=== PATIENT | female | born 1990 | race American Indian/Alaskan Native ===

== ENCOUNTER 2018-08-22 15:00 | Emergency (ER) | payer OTHER ==
--- NOTE | 2018-08-22 15:53 | Emergency Department Report ---
Blank Doc - Documentation Documentation: This is a 28-year-old female that presents with right shoulder pain. [place] a p opping sensation. Also c/o of foot fungal infection for 2 months. This initial assessment/diagnostic orders/clinical plan/treatment(s) is/are subject to change based on patient's health status, clinical progression and re- assessment by fellow clinical providers in the ED. Further treatment and workup at subsequent clinical providers discretion. Patient/guardians urged not to elope from the ED as their condition may be serious if not clinically assessed and managed. Initial orders include: 1- Patient sent to [facility] for further evaluation and treatment 2- xray of shoulder
[2018-08-22 15:56] VITALS: BP 120/64
--- NOTE | 2018-08-22 18:02 | XRay Report ---
PROCEDURE: XR SHOULDER 2+V RT TECHNIQUE: Right shoulder 3 views HISTORY: right shoulder pain COMPARISONS: FINDINGS: No fracture or dislocation identified. AC joint is intact. Adjacent bony and soft tissue structures a re unremarkable. IMPRESSION: Negative three-view shoulder series. This document is electronically signed by Marcelino Oleary MD., August 22 2018 06:00:18 PM ET
--- NOTE | 2018-08-22 19:00 | Emergency Department Report ---
ED Upper Extremity Inj HPI - General Chief Complaint: Extremity Injury, Upper Stated Complaint: RT SHOULDER PAIN/LEFT FOOT INFECTION Time Seen by Provider: 08/22/18 15:52 Source: patient Mode of arrival: Ambulatory Limitations: No Limitations - History of Present Illness Initial Comments: This is a 28-year-old female that presents with right shoulder pain. [place] a popping sensation. Also c/o of foot fungal infection for 2 months. Complaint: Injury to:: right, shoulder Onset/Timin -: month(s) Other Extremity Injury: Shoulder: Right Other Injuries: none Handedness: right Place: home Severity scale (0 -10): 5 Improves With: rest Worsens With: movement of extremity Context: fall Associated Symptoms: denies: weakness, numbness, neck pain - Related Data Previous Rx's Medication Instructions Recorded Last Taken Type Cyclobenzaprine [Flexeril] 10 mg PO TID PRN #30 tablet 08/22/18 Unknown Rx Menthol/Camphor [[place] 1 applicatio TP QID PRN #1 tube 08/22/18 Unknown Rx Ointment] Naproxen [Naprosyn] 500 mg PO BID PRN #30 tablet 08/22/18 Unknown Rx Terbinafine [LamiSIL At 1%] 1 applicatio TP BID 14 Days #1 tube 08/22/18 Unknown Rx Allergies Allergy/AdvReac Type Severity Reaction Status Date / Time No Known Allergies Allergy Unverified 08/22/18 15:03 ED Review of Systems ROS: Stated complaint: RT SHOULDER PAIN/LEFT FOOT INFECTION Other details as noted in HPI Constitutional: denies: chills, fever Eyes: denies: eye pain, eye discharge, vision change ENT: denies: ear pain, throat pain Respiratory: denies: cough, shortness of breath, wheezing Cardiovascular: denies: chest pain, palpitations Endocrine: no symptoms reported Gastrointestinal: denies: abdominal pain, nausea, diarrhea Genitourinary: denies: urgency, dysuria, discharge Musculoskeletal: arthralgia. denies: back pain, joint swelling, myalgia Skin: denies: rash, lesions Neurological: denies: headache, weakness, paresthesias Psychiatric: denies: anxiety, depression Hematological/Lymphatic: denies: easy bleeding, easy bruising ED Past Medical Hx - Surgical History Additional Surgical History: right wrist - Social History Smoking Status: Never Smoker Substance Use Type: Alcohol - Medications Home Medications: Home Medications Medication Instructions Recorded Confirmed Last Taken Type Cyclobenzaprine [Flexeril] 10 mg PO TID PRN #30 tablet 08/22/18 Unknown Rx Menthol/Camphor [[place] [facility] 1 applicatio TP QID PRN #1 tube 08/22/18 Unknown Rx Ointment] Naproxen [Naprosyn] 500 mg PO BID PRN #30 tablet 08/22/18 Unknown Rx Terbinafine [LamiSIL At 1%] 1 applicatio TP BID 14 Days #1 tube 08/22/18 Unknown Rx ED Physical Exam - General Limitations: No Limitations General appearance: alert, in no apparent distress - Head Head exam: Present: atraumatic, normocephalic - Eye Eye exam: Present: normal appearance - ENT ENT exam: Present: mucous membranes moist - Neck Neck exam: Present: normal inspection - Respiratory Respiratory exam: Present: normal lung sounds bilaterally. Absent: respiratory distress, wheezes, stridor, chest wall tenderness - Cardiovascular Cardiovascular Exam: Present: regular rate, normal rhythm, normal heart sounds. Absent: systolic murmur, diastolic murmur, rubs, gallop - GI/Abdominal GI/Abdominal exam: Present: soft, normal bowel sounds. Absent: tenderness, bruit, hernia - Rectal Rectal exam: Present: deferred - Extremities Exam Extremities exam: Present: tenderness, normal capillary refill (right anterior lateral shoulder ). Absent: pedal edema, joint swelling - Expanded Upper Extremity Exam Right Shoulder Exam: Present: full ROM, tenderness, tenderness over AC joint. Absent: swelling, abrasion, laceration, ecchymosis, deformity, crepidus, dislocation, erythema Upper Arm exam: Present: full ROM. Absent: tenderness Elbow exam: Present: full ROM. Absent: tenderness Forearm Wrist exam: Present: full ROM. Absent: tenderness Hand Wrist exam: Present: full ROM. Absent: tenderness Neuro motor exam: Present: wrist extension intact, thumb opposition intact, thumb IP flexion intact, thumb adduction intact, fingers 2-5 abduction intact Neurosensory exam: Present: 2-point discrimination, radial nerve intact, ulnar nerve intact, median nerve intact Vascular: Present: normal capillary refill, radial pulse, brachial pulse, ulnar pulse. Absent: vascular compromise, pulse deficit radial art, pulse deficit ulnar art, pulse deficit brachial art - Back Exam Back exam: Present: normal inspection, full ROM. Absent: tenderness, CVA tenderness (R), CVA tenderness (L), muscle spasm, paraspinal tenderness, vertebral tenderness, rash noted - Neurological Exam Neurological exam: Present: alert, oriented X3, CN II-XII intact, normal gait, reflexes normal. Absent: motor sensory deficit - Psychiatric Psychiatric exam: Present: normal affect, normal mood - Skin Skin exam: Present: warm, dry, intact, normal color. Absent: rash ED Course Vital Signs 08/22/18 15:53 Temperature 97.6 F Pulse Rate 79 Respiratory 16 Rate Blood Pressure 120/64 O2 Sat by Pulse 98 Oximetry ED Medical Decision Making - Radiology Data Radiology results: report reviewed, image reviewed Ordering Physician: JOAQUIM MEJIA NP Date of Service: 08/22/18 Procedure(s): XR shoulder 2+V RT Accession Number(s): [id number] cc: JOAQUIM MEJIA NP Fluoro Time In Minutes: PROCEDURE: XR SHOULDER 2+V RT TECHNIQUE: Right shoulder 3 views HISTORY: right shoulder pain COMPARISONS: FINDINGS: No fracture or dislocation identified. AC joint is intact. Adjacent bony and soft tissue structures are unremarkable. IMPRESSION: Negative three-view shoulder series. This document is electronically signed by Marcelino Esteban MD., August 22 2018 06:00:18 PM ET Transcribed By: DORITA Dictated By: LIUDMILA ESTEBAN MD Electronically Authenticated By: LIUDMILA ESTEBAN MD Signed Date/Time: 08/22/181801 DD/ 39 TD/TT: 08/22/181739 - Medical Decision Making this is a shoulder strain plan; nsaid, muscle relaxant, analgesic balm, shoulder exercises pt will follow up with pcp in 2-3 days return to ed if symptoms worsen. Critical care attestation.: If time is entered above; I have spent that time in minutes in the direct care of this critically ill patient, excluding procedure time. ED Disposition Clinical Impression: Athlete's foot on left Right shoulder strain Qualifiers: Encounter type: initial encounter Qualified Code(s): S46.911A - Strain of unspecified muscle, fascia and tendon at shoulder and upper arm level, right arm, initial encounter Disposition: TO HOME OR SELFCARE Is pt being admited?: No Does the pt Need Aspirin: No Condition: Stable Instructions: Shoulder Sprain (ED), Tinea Pedis (ED) Prescriptions: Cyclobenzaprine [Flexeril] 10 mg PO TID PRN #30 tablet PRN Reason: Muscle Spasm Terbinafine [LamiSIL At 1%] 1 applicatio TP BID 14 Days #1 tube Naproxen [Naprosyn] 500 mg PO BID PRN #30 tablet PRN Reason: pain Menthol/Camphor [[place] Ointment] 1 applicatio TP QID PRN #1 tube PRN Reason: pain Referrals: [facility] [Outside] - 3-5 Days Forms: Work/School Release Form(ED) Time of Disposition: 19:10
== END 2018-08-22 19:15 | disposition home or self-care (01) ==
LOC: ED 15:00
DX: S46.911A Strain of unspecified muscle, fascia and tendon at shoulder and upper arm level, right arm, initial encounter (principal); B35.3 Tinea pedis; X58.XXXA Exposure to other specified factors, initial encounter; Y93.89 Activity, other specified; Y92.89 Other specified places as the place of occurrence of the external cause; Y99.8 Other external cause status